=== PATIENT | male | born 1990 | race African-American/Black ===

== ENCOUNTER 2016-07-01 06:59 | Inpatient (IN) | payer OTHER ==
[~2016-07-01] VITALS: Ht 177.8 cm; Wt 66.8 kg
[~2016-07-01 06:59] MED LIST: /METO5TA PO; /MOXI40TA PO; /PANT40TA PO; /SUCR1TA PO; ASPI81TA83 OR; AZIT600T OR; CEFT500T OR; CIPR-250 PO; FLAG500T PO; FLON0.05; GLIM1TAB OR; INSUDET SC; INSUH10VL INJ; INSUH10VL SC; INSUHUMDS SC; INSULANT SC; INSULANT SQ; INSULIN REG SQ; MAALSUS PO; METF500T4 OR; NOVOLOG100 MG/ML; NOVOLOG100 MG/ML SC; PRIL20CA OR; PRIL40CA OR; REGL5TAB2 PO; SUCR1SUS PO; SYNT112T OR; TUMS500C OR; VASO10TA OR; [UNRECOGNIZED DRUG - REMARK] PO; pristiq OR
[2016-07-01] MEDS ORDERED: INSULADS INJ (07:16)
[2016-07-01] MEDS ORDERED: NS 1,000 ML IV ONE ×3 (07:30→08:45)
[2016-07-01] MEDS ORDERED: ONDANSETRON 4MG/2ML VIAL (J2405) IV ONE (07:30)
[2016-07-01 07:38] LABS: BASO % 0.3 % (0.0-1.0); EOS # 0.1 K/mm3 (0.0-0.50); EOS % 1.4 % (0.0-3.0); LARGE UNSTAINED CELL # 0.1 K/mm3 (0.0-0.4); LARGE UNSTAINED CELL % 0.7 % (0.0-4.0); LYMPH # 1.9 K/mm3 (1.5-6.5); LYMPH % 19.1 % (24.0-44.0); MEAN CORPUSCULAR HEMOGLOBIN 29.8 pg (27.0-33.0); MEAN CORPUSCULAR VOLUME 87.6 fl (80.0-96.0); MONO # 0.5 K/mm3 (0.0-0.8); MONO % 5.5 % (0.0-5.0); NEUTROPHILS % 72.9 % (36.0-66.0); PLATELET COUNT, AUTOMATED 303 k/mm3 (150-450); RED CELL DISTRIBUTION WIDTH 12.6 % (11.5-14.5); WHITE BLOOD COUNT 9.6 K/mm3 (4.0-10.0)
[2016-07-01] MEDS ORDERED: PANTOPRAZOLE 40MG INJ (PROTONIX) (C9113) IV ONE (08:15)
[2016-07-01 08:20] LABS: ALBUMIN 3.8 GM/DL (3.2-5.2); ALBUMIN/GLOBULIN RATIO 0.88 (1.00-1.93); ALKALINE PHOSPHATASE 66 U/L (45-117); ALT/SGPT 32 U/L (12-78); AMYLASE 33 U/L (25-115); ANION GAP 9 MEQ/L (8-16); AST/SGOT 17 U/L (15-37); BILIRUBIN,DIRECT 0.1 MG/DL (0.0-0.2); BILIRUBIN,TOTAL 0.4 MG/DL (0.2-1.0); BLOOD UREA NITROGEN 15 MG/DL (7-18); CALCIUM LEVEL 9.3 MG/DL (8.5-10.1); CARBON DIOXIDE LEVEL 29 MEQ/L (21-32); CHLORIDE LEVEL 102 MEQ/L (98-107); CREATININE FOR GFR 1.12 MG/DL (0.70-1.30); GLOMERULAR FILTRATION RATE > 60.0 (>60); GLUCOSE, FASTING 238 MG/DL (70-105); POTASSIUM SERUM 3.1 MEQ/L (3.5-5.1); SODIUM LEVEL 140 MEQ/L (136-145); TOTAL PROTEIN 8.1 GM/DL (6.4-8.2)
[2016-07-01 08:21] LABS: ABG BASE EXCESS 2.7 (-2.0-2.0); ABG HCO3 27.5 MEQ/L (22.0-26.0); ABG PARTIAL PRESSURE CO2 43.2 mmHg (35.0-45.0); ABG PARTIAL PRESSURE O2 76.9 mmHg (75.0-100.0); ABG STANDARD HCO3 26.8 MEQ/L (22.0-26.0); ABG TOTAL CO2 28.8 MEQ/L (22.0-29.0); ABG pH (ARTERIAL) 7.422 UNITS (7.350-7.450)
--- NOTE | 2016-07-01 08:22 | REP ---
Portable chest: Single view. History: Abdominal pain. Nausea and vomiting. Comparison study: April 30, 2015. Findings: The lungs are well inflated and clear. Cardiomediastinal silhouette and bony thorax are unremarkable. Pulmonary vasculature is not increased. Pleural angles are sharp. EKG electrodes are seen for Impression: No active disease. Signed by Mikal Leon MD 07/01/2016 08:14 A
[2016-07-01] MEDS ORDERED: MORPHINE 2 MG/ML 1ML SYRINGE IV ONE (08:45)
[2016-07-01] MEDS ORDERED: POTASSIUM CHL PWD 20 MEQ PACKET PO ONE (08:45)
[2016-07-01] MEDS ORDERED: ISOVUE-370 76% 100ML VIAL (Q9967) As Ordered ONE (08:46)
[2016-07-01] MEDS ORDERED: KCL 10MEQ IN 100ML SWI (KRUN) 10 MEQ in APPROPRIATE DILUENT 1 EA IV ONE ×2 (10:00)
--- NOTE | 2016-07-01 10:10 | REP ---
CT ABDOMEN AND PELVIS WITH IV CONTRAST: The visualized lung bases are clear. The liver, spleen, adrenals, pancreas and right kidney are unremarkable. Left kidney demonstrates a subcentimeter cyst in the mid aspect. There is no hydronephrosis. There is no abdominal aortic aneurysm. No adenopathy is seen. There is no free air. There is a tiny amount of free fluid in the pelvis. Bowel is not optimally evaluated due to lack of oral contrast and very small amount of intraperitoneal fat causing crowding of structures. No gross bowel abnormality is seen. I do not see evidence of appendicitis. At least a portion of the appendix appears to be visualized on image 81 and 82. No pelvic mass is seen. Urinary bladder is unremarkable. 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 IMPRESSION: No free air. Tiny amount of free fluid in the pelvis. No definite acute pathology in the abdomen or pelvis. Bowel evaluation is somewhat limited due to lack of oral contrast and peritoneal fat. No evidence for appendicitis. Signed by Matt Madrigal MD 07/01/2016 03:26 P
[2016-07-01] MEDS ORDERED: PROMETHAZINE INJ 25 MG/ML VIAL (J2550) As Ordered ONE (11:09)
[2016-07-01] MEDS ORDERED: DEXTROSE 50% 50 ML SYRINGE IV PRN (11:15)
[2016-07-01] MEDS ORDERED: GLUCOSE 4 GM CHEW TABLET PO PRN (11:15)
[2016-07-01] MEDS ORDERED: PROMETHAZINE INJ 25 MG/ML VIAL (J2550) IV ONE (11:15)
[2016-07-01] MEDS ORDERED: GLUCAGON FOR INJ 1 MG VIAL (J1610) SC PRN (11:15)
[2016-07-01] MEDS ORDERED: MORPHINE 2 MG/ML 1ML SYRINGE IV PRN (11:15)
[2016-07-01] MEDS ORDERED: ONDANSETRON 4MG/2ML VIAL (J2405) IV PRN (11:15)
[2016-07-01] MEDS ORDERED: PROMETHAZINE INJ 25 MG/ML VIAL (J2550) IM PRN (11:15)
[2016-07-01] MEDS ORDERED: ACETAMINOPHEN TAB 650MG DOSE (2X325MG) PO PRN (11:15)
[2016-07-01] MEDS: LEVEMIR (INSULIN DETEMIR) 1 UNITS/0.01ML SC SCH ×2 (11:33→20:55)
[2016-07-01] MEDS: KCL 20MEQ IN D5/NS 1000ML 1,000 ML IV SCH ×2 (12:08→20:54)
--- NOTE | 2016-07-01 12:21 | HPE ---
DATE OF ADMISSION: 07/01/2016 CHIEF COMPLAINT: I did not have my long acting medication. PRESENTATION: This is a 25-year-old who was feeling okay yesterday. He has been out of his Lantus and has missed three doses. He had nausea last night at 3 a.m. He has been having multiple loose stools. He has crampy abdominal pain, chills. No fever. No sick contacts at home. He has not been traveling recently. PAST SURGICAL HISTORY: Bilateral ear tubes. PAST MEDICAL HISTORY: Diabetes since age 13 insulin dependent. Hiatal hernia. SOCIAL: He smokes three cigarettes a day. Does not use alcohol. Does not use recreational drugs. FAMILY HISTORY: Notable for mother who is 55 apparently healthy with irregular heart beat and father who is 51 who he is not close with. REVIEW OF SYSTEMS: No headache, no visual change, no runny nose, no sore throat, no cough. He does not feel short of breath. He has not been eating and drinking. Has been hospitalized for diabetic ketoacidosis (DKA) previously, last time was in 04/2010. Otherwise unremarkable. PHYSICAL EXAMINATION: Temperature 98, pulse 79, respirations 18, blood pressure 152/106, 98% on room air. Input and output notable for positive 1 liter at this point and I think more that is yet to be documented. He is awake, appears uncomfortable. He has nausea and retching. Pupils equal, round and reactive. Anicteric. Not injected. Mucous membranes are tacky. Neck is supple. Breathing is symmetrical. I:E ratio is 1:3. No wheezes, rales or rhonchi. No accessory muscle use. Heart: Regular rate and rhythm. He is not tachycardic. Abdomen: Notable for diffuse mild tenderness. Active bowel sounds. No rebound, no guarding. No lower extremity edema. He has a number of high quality tattoos. White cell count 9.6, hemoglobin 14.6, platelets 303. Albumin 15, creatinine 1.12, potassium 3.1. Lactic acid 3.5. Lipase 58. TSH level is added on. Magnesium level is added on. Blood culture is pending. Chest x-ray unremarkable. Abdomen and pelvis CT shows no free air. Tiny amount of free fluid in the pelvis. No obvious pathology. ASSESSMENT: This is a 25-year-old with likely gastroenteritis, nausea, vomiting and diarrhea complicated by insulin dependent diabetes. Patient will clearly requiring a two midnight hospital stay to avoid diabetic ketoacidosis. PLAN: 1. Gastrointestinal (GI). Patient will be treated with pain medications and anti-emetic drugs. He can have clear liquids if he tolerates it. He will be monitored clinically for change in his status. 2. Endocrine. Patient has insulin dependent diabetes. We will order long acting insulin. Put sugar in his IV fluid. Monitor finger sticks every 6 hours. Replete his potassium. Check magnesium level in an attempt to avoid diabetic ketoacidosis. 3. Patient has ongoing tobacco use. Had a relatively low level. Will offer low dose nicotine patch should he wish to pursue cessation. 4. Deep venous thrombosis (DVT) prophylaxis is ordered. 5. UA and urine culture ordered. There is no obvious etiology for infectious cause of this presentation but that will complete the workup. 6. Patient has elevated lactic acidosis which I believe is related to clinical dehydration. Repeat lactic acid level will be sent by reflex.
[2016-07-01 13:50] VITALS: BP 157/92
[2016-07-01] MEDS: ENOXAPARIN 40 MG/0.4 ML SYRINGE (J1650) SC SCH (13:56)
[2016-07-01 13:58] LABS: ANION GAP 11 MEQ/L (8-16); BLOOD UREA NITROGEN 13 MG/DL (7-18); CALCIUM LEVEL 8.9 MG/DL (8.5-10.1); CARBON DIOXIDE LEVEL 25 MEQ/L (21-32); CHLORIDE LEVEL 99 MEQ/L (98-107); CREATININE FOR GFR 0.94 MG/DL (0.70-1.30); GLOMERULAR FILTRATION RATE > 60.0 (>60); MAGNESIUM LEVEL 1.8 MG/DL (1.8-2.4); POTASSIUM SERUM 4.5 MEQ/L (3.5-5.1); SODIUM LEVEL 135 MEQ/L (136-145)
[2016-07-01] MEDS: HumaLOG INSULIN (NovoLOG) PER UNIT SC SCH ×2 (13:58→18:31)
[2016-07-01 14:00] LABS: GLUCOSE, FASTING 488 MG/DL (70-105)
[2016-07-01] MEDS ORDERED: LEVEMIR (INSULIN DETEMIR) 1 UNITS/0.01ML SC ONE (14:15)
[2016-07-01] MEDS ORDERED: PROMETHAZINE INJ 25 MG/ML VIAL (J2550) IV PRN (17:45)
[2016-07-01 18:07] LABS: ANION GAP 12 MEQ/L (8-16); BLOOD UREA NITROGEN 12 MG/DL (7-18); CALCIUM LEVEL 8.6 MG/DL (8.5-10.1); CARBON DIOXIDE LEVEL 24 MEQ/L (21-32); CHLORIDE LEVEL 101 MEQ/L (98-107); CREATININE FOR GFR 0.88 MG/DL (0.70-1.30); GLOMERULAR FILTRATION RATE > 60.0 (>60); GLUCOSE, FASTING 339 MG/DL (70-105); POTASSIUM SERUM 3.7 MEQ/L (3.5-5.1); SODIUM LEVEL 137 MEQ/L (136-145)
[2016-07-01] MEDS: PANTOPRAZOLE 40MG INJ (PROTONIX) (C9113) IV SCH (20:55)
[2016-07-01 22:00] VITALS: BP 136/77
[2016-07-02 00:25] LABS: ANION GAP 7 MEQ/L (8-16); BLOOD UREA NITROGEN 12 MG/DL (7-18); CALCIUM LEVEL 8.5 MG/DL (8.5-10.1); CARBON DIOXIDE LEVEL 27 MEQ/L (21-32); CHLORIDE LEVEL 104 MEQ/L (98-107); GLOMERULAR FILTRATION RATE > 60.0 (>60); GLUCOSE, FASTING 267 MG/DL (70-105); POTASSIUM SERUM 4.1 MEQ/L (3.5-5.1); SODIUM LEVEL 138 MEQ/L (136-145)
[2016-07-02] MEDS: HumaLOG INSULIN (NovoLOG) PER UNIT SC SCH ×3 (00:36→12:50)
[2016-07-02 06:00] VITALS: BP 146/84
[2016-07-02 06:32] LABS: MEAN CORPUSCULAR HEMOGLOBIN 29.3 pg (27.0-33.0); MEAN CORPUSCULAR HGB CONC 32.8 g/dl (32.0-36.5); MEAN CORPUSCULAR VOLUME 89.2 fl (80.0-96.0); RED CELL DISTRIBUTION WIDTH 12.7 % (11.5-14.5); WHITE BLOOD COUNT 12.2 K/mm3 (4.0-10.0)
[2016-07-02 06:41] LABS: ANION GAP 8 MEQ/L (8-16); BLOOD UREA NITROGEN 11 MG/DL (7-18); CALCIUM LEVEL 8.3 MG/DL (8.5-10.1); CARBON DIOXIDE LEVEL 26 MEQ/L (21-32); CHLORIDE LEVEL 105 MEQ/L (98-107); GLOMERULAR FILTRATION RATE > 60.0 (>60); GLUCOSE, FASTING 275 MG/DL (70-105); MAGNESIUM LEVEL 1.6 MG/DL (1.8-2.4); SODIUM LEVEL 139 MEQ/L (136-145)
[2016-07-02] MEDS: KCL 20MEQ IN D5/NS 1000ML 1,000 ML IV SCH (07:12)
[2016-07-02] MEDS: ENOXAPARIN 40 MG/0.4 ML SYRINGE (J1650) SC SCH (09:33)
[2016-07-02] MEDS: PANTOPRAZOLE 40MG INJ (PROTONIX) (C9113) IV SCH (09:33)
[2016-07-02] MEDS: MAG SULF 1GM/100ML (MAG RUN) 1 GM in APPROPRIATE DILUENT 1 EA IV SCH ×2 (09:33→10:48)
[2016-07-02] MEDS: LEVEMIR (INSULIN DETEMIR) 1 UNITS/0.01ML SC SCH (09:34)
[2016-07-02 14:00] VITALS: BP 160/95
--- NOTE | 2016-07-03 08:55 | ECGEPIP ---
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
--- NOTE | 2016-07-03 21:52 | DSES ---
DATE OF ADMISSION: 07/01/2016 DATE OF DISCHARGE: 07/02/2016 No specialists involved in his care. No complications of his stay. No procedures performed during his stay. DISCHARGE DIAGNOSES: 1. Gastroenteritis. 2. Type 1 diabetes. 3. Hiatal hernia. The following is a summary of his presentation: This is a 25-year-old who presented with nausea, loose stools, was unable to keep anything down, had abdominal pain and chills, presented with concerns that he might be entering diabetic ketoacidosis. He did have uncontrolled blood sugars but no evidence of diabetic ketoacidosis. Lactic acid level was elevated but did respond nicely to IV fluids. With conservative care he improved symptomatically and likely had community variety gastroenteritis which was complicated by his type 1 diabetes. On the day of discharge, he is feeling well, we are advancing his diet. He does have a low grade fever of 100.3, pulse 96, respiratory rate 18, blood pressure 146/84, 95% on room air. He is awake, appropriately interactive, pleasantly conversant. Breathing is symmetrical. Abdomen soft, doughy, nontender. No lower extremity edema. White cell count 12.2, hemoglobin 13.3, and platelets 243, BUN 11, creatinine 0.9, magnesium 1.6 and was repleted prior to discharge. Discharge instructions will include the following: The patient is to followup with his primary care provider (PCP) which had previously been the outpatient medicine [facility] clinic, will verify that prior to discharge. Continue his NovoLog per his home instructions. Continue his Lantus 30 units daily. I did call his pharmacy, [facility], to make sure that these medicines were available to him and, in fact, at this point, they are.
== END 2016-07-02 16:48 | disposition home or self-care (01) | DRG 249 ==
LOC: M ED 09:09 → M ED INP 11:03 → M MSPAV 13:05
PROVIDERS: ADMIT Internal Medicine; ATTEND Internal Medicine
DX: K52.9 Noninfective gastroenteritis and colitis, unspecified (principal); E10.9 Type 1 diabetes mellitus without complications; K44.9 Diaphragmatic hernia without obstruction or gangrene; Z79.4 Long term (current) use of insulin

== ENCOUNTER 2017-07-28 15:34 | Inpatient (IN) | payer OTHER ==
[2017-07-28] MEDS ORDERED: ONDANSETRON 4MG/2ML VIAL (J2405) As Ordered (15:44)
[2017-07-28 15:55] LABS: BEDSIDE GLUCOSE > 600 MG/DL (70-105)
[2017-07-28] MEDS: NS 1,000 ML IV ×5 (15:58→20:51)
[2017-07-28] MEDS: ONDANSETRON 4MG/2ML VIAL (J2405) IV (15:58)
[2017-07-28 16:18] LABS: VENOUS BASE EXCESS -16.4 (-2.0-2.0); VENOUS HCO3 9.7 MEQ/L (23.0-27.0); VENOUS O2 SATURATION 94.8 % (60.0-80.0); VENOUS PARTIAL PRESSURE O2 83.7 mmHg (30.0-50.0); VENOUS PH 7.205 UNITS (7.330-7.430); VENOUS STANDARD HCO3 12.4 MEQ/L; VENOUS TOTAL CO2 10.4 MEQ/L (24.0-28.0)
[2017-07-28 16:23] LABS: BASO # 0.1 10^3/uL (0.0-0.2); BASO % 0.2 % (0.0-1.0); HEMATOCRIT 43.2 % (42.0-52.0); HEMOGLOBIN 14.4 g/dl (13.5-17.5); IMMATURE GRANULOCYTE % 3.2 % (0-3.0); MEAN CORPUSCULAR HEMOGLOBIN 30.1 pg (27.0-33.0); MEAN CORPUSCULAR HGB CONC 33.3 g/dl (32.0-36.5); MEAN CORPUSCULAR VOLUME 90.4 fl (80.0-96.0); MONO # 1.8 10^3/uL (0.0-0.8); MONO % 6.4 % (0.0-5.0); NEUTROPHILS % 83.2 % (36.0-66.0); PLATELET COUNT, AUTOMATED 394 10^3/uL (150-450); RED BLOOD COUNT 4.78 10^6/uL (4.30-6.10); RED CELL DISTRIBUTION WIDTH 12.5 % (11.5-14.5); WHITE BLOOD COUNT 28.9 10^3/uL (4.0-10.0)
[2017-07-28 16:24] LABS: OSMOLALITY SERUM 349 MOSM/KG (275-295)
[2017-07-28 16:34] LABS: ALBUMIN 3.7 GM/DL (3.2-5.2); ALBUMIN/GLOBULIN RATIO 0.95 (1.00-1.93); ALKALINE PHOSPHATASE 75 U/L (45-117); ALT/SGPT 30 U/L (12-78); ANION GAP 32 MEQ/L (8-16); AST/SGOT 17 U/L (7-37); BILIRUBIN,DIRECT 0.2 MG/DL (0.0-0.2); BILIRUBIN,TOTAL 0.6 MG/DL (0.2-1.0); BLOOD UREA NITROGEN 40 MG/DL (7-18); CALCIUM LEVEL 9.1 MG/DL (8.5-10.1); CARBON DIOXIDE LEVEL 13 MEQ/L (21-32); CHLORIDE LEVEL 86 MEQ/L (98-107); CREATININE FOR GFR 2.92 MG/DL (0.70-1.30); GLOMERULAR FILTRATION RATE 34.4 (>60); MAGNESIUM LEVEL 2.2 MG/DL (1.8-2.4); SODIUM LEVEL 131 MEQ/L (136-145); TOTAL PROTEIN 7.6 GM/DL (6.4-8.2)
[2017-07-28] MEDS ORDERED: INSULIN IV RATE CHANGE DOCUMENTATION ML/HR XX (16:45)
[2017-07-28 16:47] LABS: GLUCOSE, FASTING 885 MG/DL (70-100); POTASSIUM SERUM 5.6 MEQ/L (3.5-5.1)
[2017-07-28 16:48] LABS: ACETONE/KETONE > 46.00 MG/DL (<2.81)
[2017-07-28 16:49] LABS: ESTIMATED AVERAGE GLUCOSE 272 MG/DL (60-110); HEMOGLOBIN A1c 11.1 %
[2017-07-28 16:53] LABS: PHOSPHORUS LEVEL 8.6 MG/DL (2.5-4.9)
[2017-07-28 17:07] LABS: LIPASE 40 U/L (73-393)
[2017-07-28] MEDS: INSULIN HUMAN REGULAR 100 UNITS in NS 99 ML IV ×2 (17:40→20:10)
[2017-07-28 18:00] LABS: APPEARANCE, URINE CLEAR (CLEAR); BACTERIA, URINE AUTO NEGATIVE (NEGATIVE); BILIRUBIN, URINE AUTO NEGATIVE (NEGATIVE); BLOOD, URINE BLOOD 1+ (NEGATIVE); COLOR, URINE STRAW (YELLOW); GLUCOSE, URINE (UA) AUTO 3+ mg/dL (NEGATIVE); KETONE, URINE AUTO 2+ mg/dL (NEGATIVE); LEUKOCYTE ESTERASE, URINE AUTO NEGATIVE (NEGATIVE); NITRITE, URINE AUTO NEGATIVE (NEGATIVE); PROTEIN, URINE AUTO 2+ mg/dL (NEGATIVE); RBC, URINE AUTO 1 /HPF (0-3); SPECIFIC GRAVITY URINE AUTO 1.017 (1.002-1.035); SQUAMOUS EPITHELIAL CELL UR AU 0 /HPF (0-6); UROBILINOGEN, URINE AUTO 0.2 mg/dL (0.0-2.0); WBC, URINE AUTO 0 /HPF (0-3)
[2017-07-28 18:17] LABS: AMPHETAMINES LEVEL URINE NEGATIVE (NEGATIVE); BARBITURATES URINE NEGATIVE (NEGATIVE); BENZODIAZEPINES URINE NEGATIVE (NEGATIVE); CANNABINOIDS URINE POSITIVE (NEGATIVE); COCAINE METABOLITE URINE NEGATIVE (NEGATIVE); METHADONE URINE NEGATIVE (NEGATIVE); OPIATES URINE NEGATIVE (NEGATIVE); PHENCYCLIDINE URINE NEGATIVE (NEGATIVE)
[2017-07-28 18:19] LABS: VENOUS BASE EXCESS -18.6 (-2.0-2.0); VENOUS HCO3 7.8 MEQ/L (23.0-27.0); VENOUS O2 SATURATION 98.5 % (60.0-80.0); VENOUS PARTIAL PRESSURE CO2 21.5 mmHg (38.0-50.0); VENOUS PARTIAL PRESSURE O2 145.4 mmHg (30.0-50.0); VENOUS STANDARD HCO3 10.9 MEQ/L; VENOUS TOTAL CO2 8.5 MEQ/L (24.0-28.0)
[2017-07-28 18:42] LABS: BEDSIDE GLUCOSE CONFIRMATION 896 MG/DL (LESS THAN 200)
[2017-07-28] MEDS ORDERED: ONDANSETRON 4MG/2ML VIAL (J2405) IV (19:30)
[2017-07-28] MEDS ORDERED: MORPHINE 4 MG/ML 1ML VIAL/SYRINGE (J2270) IV (19:30)
[2017-07-28 19:45] LABS: BEDSIDE GLUCOSE CONFIRMATION 757 MG/DL (LESS THAN 200)
[2017-07-28] MEDS: PIPERACILLIN/TAZOBACTAM SOD 2.25 GM in D5W MINI-BAG PLUS 50 ML IV (20:28)
[2017-07-28 20:51] LABS: ANION GAP 21 MEQ/L (8-16); BLOOD UREA NITROGEN 41 MG/DL (7-18); CALCIUM LEVEL 7.8 MG/DL (8.5-10.1); CARBON DIOXIDE LEVEL 17 MEQ/L (21-32); CHLORIDE LEVEL 103 MEQ/L (98-107); CPK CREATINE PHOSPHOKINASE 461 U/L (39-308); CREATININE FOR GFR 2.74 MG/DL (0.70-1.30); MAGNESIUM LEVEL 2.6 MG/DL (1.8-2.4); PHOSPHORUS LEVEL 3.6 MG/DL (2.5-4.9); POTASSIUM SERUM 4.4 MEQ/L (3.5-5.1); SODIUM LEVEL 141 MEQ/L (136-145); T UPTAKE 42 % (33-40); TROPONIN I < 0.02 NG/ML (< 0.10)
[2017-07-28 20:54] LABS: GLUCOSE, FASTING 642 MG/DL (70-100)
[2017-07-28 20:57] LABS: CK-MB VALUE MASS 3.9 NG/ML (<3.6); FREE THYROXINE INDEX 1.8 % (1.4-3.8); MB/CK RELATIVE INDEX 0.84 (< OR =4); THYROID STIMULATING HORMONE 0.417 uIU/ML (0.358-3.740); THYROXINE (T4) 4.3 UG/DL (4.5-12.0)
[2017-07-28 21:15] LABS: ACETONE/KETONE > 46.00 MG/DL (<2.81)
[2017-07-28] MEDS: KCL 20MEQ in NS 1000ML 1,000 ML IV (21:22)
[2017-07-28] MEDS: LACTOBACILLUS ACIDOPHILUS CAP (BACID) PO (21:53)
[2017-07-28] MEDS: HEPARIN SOD (PORCINE) 5000 UNITS/ML VIAL SC (21:53)
[2017-07-28] MEDS: INSULIN IV RATE CHANGE DOCUMENTATION ML/HR XX (22:03)
[2017-07-28 22:11] LABS: BEDSIDE GLUCOSE 412 MG/DL (70-105)
[2017-07-28 22:17] LABS: OSMOLALITY URINE 547 MOSM/KG (500-800)
[2017-07-28 22:29] LABS: CHLORIDE,RANDOM URINE < 10 MEQ/L; CREATININE,RANDOM URINE 38.1 MG/DL; POTASSIUM RANDOM URINE 22.9 MEQ/L; SODIUM,RANDOM URINE 30 MEQ/L; TOTAL PROTEIN,RANDOM URINE 39.1 MG/DL (0.0-12.0)
[2017-07-28 23:19] LABS: BEDSIDE GLUCOSE 364 MG/DL (70-105)
[2017-07-28 23:23] LABS: ACETONE/KETONE 33.21 MG/DL (<2.81); ANION GAP 10 MEQ/L (8-16); BLOOD UREA NITROGEN 39 MG/DL (7-18); CALCIUM LEVEL 7.9 MG/DL (8.5-10.1); CARBON DIOXIDE LEVEL 24 MEQ/L (21-32); CHLORIDE LEVEL 111 MEQ/L (98-107); CREATININE FOR GFR 2.39 MG/DL (0.70-1.30); GLOMERULAR FILTRATION RATE 43.3 (>60); MAGNESIUM LEVEL 2.4 MG/DL (1.8-2.4); PHOSPHORUS LEVEL 2.4 MG/DL (2.5-4.9); POTASSIUM SERUM 4.6 MEQ/L (3.5-5.1); SODIUM LEVEL 145 MEQ/L (136-145)
[2017-07-28 23:28] LABS: GLUCOSE, FASTING 417 MG/DL (70-100)
[2017-07-28] MEDS ORDERED: INFLUENZA QUADRIVALENT PF VACCINE 0.5ML SYRINGE (90686) IM (23:45)
[2017-07-29] MEDS: INSULIN IV RATE CHANGE DOCUMENTATION ML/HR XX ×3 (00:19→07:07)
[2017-07-29 01:30] LABS: BEDSIDE GLUCOSE 313 MG/DL (70-105)
[2017-07-29 01:30] LABS: BEDSIDE GLUCOSE 307 MG/DL (70-105)
[2017-07-29] MEDS: ACETAMINOPHEN TAB 650MG DOSE (2X325MG) PO (01:39)
[2017-07-29] MEDS: KCL 20MEQ in NS 1000ML 1,000 ML IV ×2 (02:06→06:12)
[2017-07-29 02:16] LABS: BEDSIDE GLUCOSE 245 MG/DL (70-105)
[2017-07-29 03:12] LABS: BEDSIDE GLUCOSE 246 MG/DL (70-105)
[2017-07-29] MEDS: PIPERACILLIN/TAZOBACTAM SOD 2.25 GM in D5W MINI-BAG PLUS 50 ML IV ×3 (04:20→20:10)
[2017-07-29 04:21] LABS: MEAN CORPUSCULAR HEMOGLOBIN 30.3 pg (27.0-33.0); MEAN CORPUSCULAR HGB CONC 34.9 g/dl (32.0-36.5); MEAN CORPUSCULAR VOLUME 87.1 fl (80.0-96.0); PLATELET COUNT, AUTOMATED 315 10^3/uL (150-450); RED BLOOD COUNT 4.02 10^6/uL (4.30-6.10); RED CELL DISTRIBUTION WIDTH 12.2 % (11.5-14.5); WHITE BLOOD COUNT 25.5 10^3/uL (4.0-10.0)
[2017-07-29 04:24] LABS: HEMOGLOBIN 12.2 g/dl (13.5-17.5)
[2017-07-29 04:26] LABS: BEDSIDE GLUCOSE 209 MG/DL (70-105)
[2017-07-29 04:28] LABS: ALBUMIN 2.6 GM/DL (3.2-5.2); ALBUMIN/GLOBULIN RATIO 0.72 (1.00-1.93); ALKALINE PHOSPHATASE 57 U/L (45-117); ALT/SGPT 24 U/L (12-78); ANION GAP 7 MEQ/L (8-16); AST/SGOT 20 U/L (7-37); BILIRUBIN,TOTAL 0.3 MG/DL (0.2-1.0); BLOOD UREA NITROGEN 30 MG/DL (7-18); C REACTIVE PROTEIN QUANTITATIV < 0.30 MG/DL (0.00-0.30); CALCIUM LEVEL 7.6 MG/DL (8.5-10.1); CARBON DIOXIDE LEVEL 26 MEQ/L (21-32); CHLORIDE LEVEL 114 MEQ/L (98-107); CK-MB VALUE MASS 3.9 NG/ML (<3.6); CPK CREATINE PHOSPHOKINASE 429 U/L (39-308); CREATININE FOR GFR 1.89 MG/DL (0.70-1.30); GLOMERULAR FILTRATION RATE 56.8 (>60); GLUCOSE, FASTING 221 MG/DL (70-100); MAGNESIUM LEVEL 2.3 MG/DL (1.8-2.4); PHOSPHORUS LEVEL 2.7 MG/DL (2.5-4.9); POTASSIUM SERUM 4.4 MEQ/L (3.5-5.1); SODIUM LEVEL 147 MEQ/L (136-145); TOTAL PROTEIN 6.2 GM/DL (6.4-8.2); TROPONIN I 0.03 NG/ML (< 0.10)
[2017-07-29 05:10] LABS: BEDSIDE GLUCOSE 240 MG/DL (70-105)
[2017-07-29 05:58] LABS: BEDSIDE GLUCOSE 595 MG/DL (70-105)
[2017-07-29 05:58] LABS: BEDSIDE GLUCOSE 459 MG/DL (70-105)
[2017-07-29] MEDS: HEPARIN SOD (PORCINE) 5000 UNITS/ML VIAL SC ×3 (06:12→20:11)
[2017-07-29 06:18] LABS: BEDSIDE GLUCOSE 209 MG/DL (70-105)
[2017-07-29] MEDS ORDERED: GLUCAGON FOR INJ 1 MG VIAL (J1610) SC (07:15)
[2017-07-29] MEDS ORDERED: GLUCOSE 4 GM CHEW TABLET PO (07:15)
[2017-07-29] MEDS ORDERED: DEXTROSE 50% 50 ML SYRINGE IV (07:15)
[2017-07-29 07:30] LABS: ACETONE/KETONE 9.81 MG/DL (<2.81); ANION GAP 7 MEQ/L (8-16); BLOOD UREA NITROGEN 26 MG/DL (7-18); CALCIUM LEVEL 7.9 MG/DL (8.5-10.1); CARBON DIOXIDE LEVEL 27 MEQ/L (21-32); CHLORIDE LEVEL 113 MEQ/L (98-107); CREATININE FOR GFR 1.59 MG/DL (0.70-1.30); GLOMERULAR FILTRATION RATE > 60.0 (>60); GLUCOSE, FASTING 190 MG/DL (70-100); MAGNESIUM LEVEL 2.4 MG/DL (1.8-2.4); PHOSPHORUS LEVEL 3.1 MG/DL (2.5-4.9); POTASSIUM SERUM 4.1 MEQ/L (3.5-5.1); SODIUM LEVEL 147 MEQ/L (136-145)
[2017-07-29] MEDS: LEVEMIR (INSULIN DETEMIR) 1 UNITS/0.01ML SC (07:46)
[2017-07-29 09:12] LABS: BEDSIDE GLUCOSE 175 MG/DL (70-105)
[2017-07-29] MEDS: LACTOBACILLUS ACIDOPHILUS CAP (BACID) PO ×3 (09:12→20:10)
[2017-07-29] MEDS: PANTOPRAZOLE 40MG INJ (PROTONIX) (C9113) IV (09:12)
[2017-07-29] MEDS: NS 0.45% 1,000 ML IV (09:13)
[2017-07-29 11:39] LABS: BEDSIDE GLUCOSE 192 MG/DL (70-105)
[2017-07-29 11:43] LABS: ACETONE/KETONE 4.88 MG/DL (<2.81); ANION GAP 5 MEQ/L (8-16); BLOOD UREA NITROGEN 21 MG/DL (7-18); CARBON DIOXIDE LEVEL 29 MEQ/L (21-32); CHLORIDE LEVEL 110 MEQ/L (98-107); CREATININE FOR GFR 1.43 MG/DL (0.70-1.30); GLOMERULAR FILTRATION RATE > 60.0 (>60); GLUCOSE, FASTING 226 MG/DL (70-100); POTASSIUM SERUM 3.8 MEQ/L (3.5-5.1); SODIUM LEVEL 144 MEQ/L (136-145)
[2017-07-29] MEDS: HumaLOG INSULIN (NovoLOG) PER UNIT SC ×3 (13:27→21:40)
[2017-07-29 13:32] LABS: BEDSIDE GLUCOSE 155 MG/DL (70-105)
[2017-07-29 15:06] LABS: BEDSIDE GLUCOSE 106 MG/DL (70-105)
[2017-07-29] MEDS: D5W/0.45% SODIUM CHLORIDE 1,000 ML IV (19:39)
[2017-07-30] MEDS: PIPERACILLIN/TAZOBACTAM SOD 2.25 GM in D5W MINI-BAG PLUS 50 ML IV ×3 (04:14→20:27)
[2017-07-30] MEDS: HumaLOG INSULIN (NovoLOG) PER UNIT SC ×5 (04:30→20:15)
[2017-07-30] MEDS: NS 1,000 ML IV (04:33)
[2017-07-30] MEDS: HEPARIN SOD (PORCINE) 5000 UNITS/ML VIAL SC ×3 (05:30→20:28)
[2017-07-30 06:06] LABS: HEMATOCRIT 35.7 % (42.0-52.0); HEMOGLOBIN 12.3 g/dl (13.5-17.5); MEAN CORPUSCULAR HEMOGLOBIN 30.4 pg (27.0-33.0); MEAN CORPUSCULAR HGB CONC 34.5 g/dl (32.0-36.5); MEAN CORPUSCULAR VOLUME 88.1 fl (80.0-96.0); PLATELET COUNT, AUTOMATED 247 10^3/uL (150-450); RED BLOOD COUNT 4.05 10^6/uL (4.30-6.10); RED CELL DISTRIBUTION WIDTH 12.2 % (11.5-14.5); WHITE BLOOD COUNT 12.8 10^3/uL (4.0-10.0)
[2017-07-30 06:26] LABS: ALBUMIN 2.5 GM/DL (3.2-5.2); ALBUMIN/GLOBULIN RATIO 0.71 (1.00-1.93); ALKALINE PHOSPHATASE 53 U/L (45-117); ALT/SGPT 22 U/L (12-78); ANION GAP 13 MEQ/L (8-16); AST/SGOT 19 U/L (7-37); BILIRUBIN,TOTAL 0.6 MG/DL (0.2-1.0); BLOOD UREA NITROGEN 19 MG/DL (7-18); C REACTIVE PROTEIN QUANTITATIV < 0.30 MG/DL (0.00-0.30); CALCIUM LEVEL 7.8 MG/DL (8.5-10.1); CARBON DIOXIDE LEVEL 22 MEQ/L (21-32); CHLORIDE LEVEL 99 MEQ/L (98-107); GLOMERULAR FILTRATION RATE > 60.0 (>60); MAGNESIUM LEVEL 2.1 MG/DL (1.8-2.4); POTASSIUM SERUM 4.1 MEQ/L (3.5-5.1); SODIUM LEVEL 134 MEQ/L (136-145)
[2017-07-30 06:27] LABS: GLUCOSE, FASTING 447 MG/DL (70-100)
[2017-07-30] MEDS: LACTOBACILLUS ACIDOPHILUS CAP (BACID) PO ×3 (08:12→20:28)
[2017-07-30] MEDS: LEVEMIR (INSULIN DETEMIR) 1 UNITS/0.01ML SC (08:13)
[2017-07-30 12:27] LABS: ANION GAP 5 MEQ/L (8-16); BLOOD UREA NITROGEN 17 MG/DL (7-18); CALCIUM LEVEL 8.2 MG/DL (8.5-10.1); CARBON DIOXIDE LEVEL 30 MEQ/L (21-32); CHLORIDE LEVEL 103 MEQ/L (98-107); CREATININE FOR GFR 1.16 MG/DL (0.70-1.30); GLOMERULAR FILTRATION RATE > 60.0 (>60); GLUCOSE, FASTING 170 MG/DL (70-100); POTASSIUM SERUM 4.1 MEQ/L (3.5-5.1); SODIUM LEVEL 138 MEQ/L (136-145)
[2017-07-30] MEDS: ACETAMINOPHEN TAB 650MG DOSE (2X325MG) PO (15:53)
[2017-07-30 17:01] LABS: BEDSIDE GLUCOSE 81 MG/DL (70-105)
[2017-07-30 17:01] LABS: BEDSIDE GLUCOSE 291 MG/DL (70-105)
[2017-07-30 17:01] LABS: BEDSIDE GLUCOSE 299 MG/DL (70-105)
[2017-07-30 17:01] LABS: BEDSIDE GLUCOSE 87 MG/DL (70-105)
[2017-07-30 17:01] LABS: BEDSIDE GLUCOSE 103 MG/DL (70-105)
[2017-07-30 17:01] LABS: BEDSIDE GLUCOSE 192 MG/DL (70-105)
[2017-07-30 17:01] LABS: BEDSIDE GLUCOSE 481 MG/DL (70-105)
[2017-07-31] MEDS: HEPARIN SOD (PORCINE) 5000 UNITS/ML VIAL SC (05:07)
[2017-07-31] MEDS: PIPERACILLIN/TAZOBACTAM SOD 2.25 GM in D5W MINI-BAG PLUS 50 ML IV (05:07)
[2017-07-31 06:08] LABS: HEMATOCRIT 35.1 % (42.0-52.0); HEMOGLOBIN 12.4 g/dl (13.5-17.5); MEAN CORPUSCULAR HEMOGLOBIN 30.6 pg (27.0-33.0); MEAN CORPUSCULAR HGB CONC 35.3 g/dl (32.0-36.5); MEAN CORPUSCULAR VOLUME 86.7 fl (80.0-96.0); PLATELET COUNT, AUTOMATED 253 10^3/uL (150-450); RED BLOOD COUNT 4.05 10^6/uL (4.30-6.10); WHITE BLOOD COUNT 8.2 10^3/uL (4.0-10.0)
[2017-07-31 06:37] LABS: ALBUMIN 2.4 GM/DL (3.2-5.2); ALBUMIN/GLOBULIN RATIO 0.73 (1.00-1.93); ALKALINE PHOSPHATASE 51 U/L (45-117); ALT/SGPT 23 U/L (12-78); ANION GAP 4 MEQ/L (8-16); AST/SGOT 17 U/L (7-37); BILIRUBIN,TOTAL 0.5 MG/DL (0.2-1.0); BLOOD UREA NITROGEN 17 MG/DL (7-18); C REACTIVE PROTEIN QUANTITATIV < 0.30 MG/DL (0.00-0.30); CALCIUM LEVEL 8.2 MG/DL (8.5-10.1); CARBON DIOXIDE LEVEL 32 MEQ/L (21-32); CHLORIDE LEVEL 100 MEQ/L (98-107); CREATININE FOR GFR 1.21 MG/DL (0.70-1.30); GLOMERULAR FILTRATION RATE > 60.0 (>60); GLUCOSE, FASTING 340 MG/DL (70-100); MAGNESIUM LEVEL 2.1 MG/DL (1.8-2.4); POTASSIUM SERUM 4.1 MEQ/L (3.5-5.1); SODIUM LEVEL 136 MEQ/L (136-145); TOTAL PROTEIN 5.7 GM/DL (6.4-8.2)
[2017-07-31] MEDS: AUGMENTIN 875 MG TAB PO (09:09)
[2017-07-31] MEDS: LACTOBACILLUS ACIDOPHILUS CAP (BACID) PO (09:09)
[2017-07-31] MEDS: LEVEMIR (INSULIN DETEMIR) 1 UNITS/0.01ML SC (09:09)
[2017-07-31] MEDS: HumaLOG INSULIN (NovoLOG) PER UNIT SC ×2 (09:09→12:31)
[2017-07-31 11:46] LABS: BEDSIDE GLUCOSE 244 MG/DL (70-105)
[2017-07-31 11:47] LABS: BEDSIDE GLUCOSE > 600 MG/DL (70-105)
[2017-07-31 11:47] LABS: BEDSIDE GLUCOSE > 600 MG/DL (70-105)
[2017-07-31 20:44] LABS: BEDSIDE GLUCOSE 340 MG/DL (70-105)
[2017-07-31 20:44] LABS: BEDSIDE GLUCOSE 214 MG/DL (70-105)
== END 2017-07-31 16:10 | disposition home or self-care (01) | DRG 420 ==
LOC: M MSPAV 07-29 15:10 → M ED 15:34 → M ED INP 19:18 → M ICU 21:27
PROVIDERS: Hospitalist
DX: E10.10 Type 1 diabetes mellitus with ketoacidosis without coma (principal); N17.9 Acute kidney failure, unspecified; E87.1 Hypo-osmolality and hyponatremia; K52.9 Noninfective gastroenteritis and colitis, unspecified; K44.9 Diaphragmatic hernia without obstruction or gangrene; Z79.4 Long term (current) use of insulin; Z79.899 Other long term (current) drug therapy; D72.829 Elevated white blood cell count, unspecified

== ENCOUNTER 2018-12-31 08:33 | Emergency (ER) | payer OTHER ==
[~2018-12-31] VITALS: Ht 177.8 cm; Wt 69.0 kg
[~2018-12-31 08:33] MED LIST changes: -/METO5TA PO; -/MOXI40TA PO; -/PANT40TA PO; -/SUCR1TA PO; +AMOX875T2 PO; +AVEL1TAB2 PO; +INSULADS SC; +METO1TAB88 PO; +PROT1TAB2 PO; +RISATAB3 PO; +SUCR1TAB56 PO
[2018-12-31] MEDS ORDERED: ONDANSETRON 4MG/2ML VIAL (J2405) IV ONE (09:00)
[2018-12-31] MEDS ORDERED: BASA100I (09:34)
[2018-12-31] MEDS ORDERED: ADME100I2 (09:34)
[2018-12-31] MEDS ORDERED: METOCLOPRAMIDE INJ 10MG/2ML VIAL (J2765) IV ONE (09:45)
[2018-12-31] MEDS ORDERED: NS 1,000 ML IV ONE (09:45)
--- NOTE | 2018-12-31 09:53 | REP ---
Scrotal sonography: History: Testicular pain. Findings: High-resolution bilateral scrotal sonography is performed. No intratesticular mass lesion is seen on either side. Testicular Doppler flow is normal. Resistive indices are 0.49 on the right and 0.50 on the left by Doppler. There is a 0.5 cm cyst in the epididymis on the left. The right epididymis is unremarkable. Right testicular dimensions are 4.4 x 2.3 x 3.3 cm. Left testis measures 4.4 x 2.5 x 3.0 cm. Impression: 0.5 cm left epididymal cyst. Otherwise normal bilateral scrotal sonography with Doppler. Electronically Signed by Mikal Leon MD 12/31/2018 01:48 P
[2018-12-31 09:55] LABS: BASO % 0.2 % (0.0-1.0); EOS % 0.4 % (0.0-3.0); HEMATOCRIT 40.4 % (42.0-52.0); HEMOGLOBIN 14.3 g/dl (13.5-17.5); LYMPH # 1.9 10^3/uL (1.5-5.0); LYMPH % 18.2 % (24.0-44.0); MEAN CORPUSCULAR HGB CONC 35.4 g/dl (32.0-36.5); MEAN CORPUSCULAR VOLUME 87.4 fl (80.0-96.0); MONO # 0.7 10^3/uL (0.0-0.8); MONO % 6.5 % (0.0-5.0); NEUTROPHILS # 7.7 10^3/uL (1.5-8.5); NEUTROPHILS % 74.3 % (36.0-66.0); PLATELET COUNT, AUTOMATED 295 10^3/uL (150-450); RED BLOOD COUNT 4.62 10^6/uL (4.30-6.10); WHITE BLOOD COUNT 10.3 10^3/uL (4.0-10.0)
[2018-12-31 10:26] LABS: ALBUMIN 3.6 GM/DL (3.2-5.2); ALT/SGPT 28 U/L (12-78); BILIRUBIN,DIRECT 0.1 MG/DL (0.0-0.2); BILIRUBIN,TOTAL 0.4 MG/DL (0.2-1.0); BLOOD UREA NITROGEN 13 MG/DL (7-18); CALCIUM LEVEL 9.7 MG/DL (8.5-10.1); CARBON DIOXIDE LEVEL 28 MEQ/L (21-32); CHLORIDE LEVEL 103 MEQ/L (98-107); CREATININE FOR GFR 1.11 MG/DL (0.70-1.30); GLOMERULAR FILTRATION RATE > 60.0 (>60); GLUCOSE, FASTING 186 MG/DL (70-100); POTASSIUM SERUM 3.6 MEQ/L (3.5-5.1); SODIUM LEVEL 139 MEQ/L (136-145); TOTAL PROTEIN 7.5 GM/DL (6.4-8.2)
[2018-12-31] MEDS ORDERED: KETOROLAC 30 MG/ML VIAL (J1885) IV ONE (10:45)
--- NOTE | 2018-12-31 10:54 | REP ---
CT abdomen and pelvis without IV or oral contrast: History: Right groin and testicular pain. Rule out stone. Comparison CT study July 28, 2017, as well as July 01, 2016. CT findings: Preliminary digital adoption agent radiograph is unremarkable. The lung bases are clear. The liver and the spleen are normal in size, homogeneous in texture. No adrenal lesion is seen on either side. The gallbladder is unremarkable. There is very little intraperitoneal or retroperitoneal fat. No pancreatic abnormality is noted. The kidneys are morphologically intact. No intrarenal calculus or hydronephrosis is observed on either side. No retroperitoneal mass or adenopathy is observed. Small and large intestinal bowel loops are unremarkable in the abdomen and pelvis. Prostate, seminal vesicles and urinary bladder are unremarkable. I cannot confidently identify the appendix but there is no inflammatory focus in the right lower quadrant. There is a benign osteochondroma projecting posterolaterally from the iliac crest on the right. This is unchanged. It measures 2.1 cm in greatest diameter. No bony destructive lesion is seen. No abdominal wall defect is observed. Impression: Negative CT abdomen and pelvis. No urinary tract calculus or hydronephrosis seen. Appendix not confidently identified but no inflammatory abnormality is seen. 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 Electronically Signed by Mikal Leon MD 12/31/2018 01:51 P
[2018-12-31 10:59] LABS: CHLAMYDIA DNA AMPLIFICATION NEGATIVE (NEGATIVE); GC DNA AMPLIFICATION NEGATIVE (NEGATIVE)
[2018-12-31] MEDS ORDERED: ONDANSETRON 4 MG ORAL DISINTEGRATING TAB (Q0162 PER 1MG) PO ONE (12:00)
[2018-12-31] MEDS ORDERED: CAPSAICIN 0.025% CR 60 GM TOP ONE (13:15)
[2018-12-31] MEDS ORDERED: CAPS0.022 TOP (14:14)
[2018-12-31] MEDS ORDERED: ONDA4TAB6 PO (14:14)
[2018-12-31 14:35] VITALS: BP 148/87
== END 2018-12-31 14:49 | disposition home or self-care (01) ==
LOC: M ED 08:33
DX: F12.188 Cannabis abuse with other cannabis-induced disorder (principal); N50.3 Cyst of epididymis; E11.9 Type 2 diabetes mellitus without complications; R51 Headache; Z79.4 Long term (current) use of insulin
CPT/HCPCS: 74176; 76870; 80048; 80076; 81001; 85025; 87661; 93976; 96361; 96374; 96375; 99284; J1885; J2405; J2765; Q0162